=== PATIENT | female | born 1955 | race Caucasian/White ===

== ENCOUNTER 2016-10-05 08:36 | Day surgery (SDC) | payer OTHER ==
[~2016-10-05 08:36] MED LIST: ALBUTEROL HFA60 DOSE IN; ATIVAN0.5 MG PO; BACLOFEN10 MG PO; GABAPENTIN300 MG PO; HUMALIN N SC; LISINOPRIL10 MG PO; MAXALT-MLT10 MG PO; SIMVASTATIN20 MG; VENLAFAXINE H37.5 M1 PO
--- NOTE | 2016-10-05 10:36 | DIAGNOSTIC IMAGING REPORT ---
PROCEDURE: XR FLUORO GUIDED SPINE INJ-PC INDICATION: BACK PAIN TECHNIQUE: C-arm fluoroscopy provided to Dr. King for therapeutic spinal injection. Fluoroscopy time 0.2 minutes 20.7 mGy). COMPARISON: None. FINDINGS: AP and lateral C-arm views. There is a needle tip overlying the posterior spinal canal at the L5-S1 level with injection of a small amount of epidural contrast material. IMPRESSION: 1. C-arm fluoroscopy for therapeutic spinal injection (performed by Dr. King).
[2016-10-05 10:43] VITALS: BP 118/60
--- NOTE | 2016-10-07 09:11 | PROCEDURE NOTE ---
DATE OF PROCEDURE: 10/05/2016 ATTENDING PHYSICIAN/PROVIDER: Tera King MD PREPROCEDURE DIAGNOSIS: 1. Left sciatica POSTPROCEDURE DIAGNOSIS: 1. Left sciatica PROCEDURE PERFORMED: 1. L5-S1 interlaminar epidural steroid injection INDICATIONS: The patient is referred by Dr. Bradford for a repeat lumbar epidural steroid injection. She has had a recurrence of her low back pain radiating down the left leg to the foot. It is disabling and makes it very difficult for her to walk around. She describes the pain as an 8/10, dull, throbbing and sometimes shock-like, made worse by standing, walking, sitting, and bending. 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 She travels to and from work on public transport. She was originally referred for this condition by Dr. De La Torre in 05/2016 and had good pain relief from an epidural steroid injection. MEDICAL/SURGICAL HISTORY: Medical history: High blood pressure, varicose veins, panic attack, kidney stones, diabetes mellitus, anemia. Past Surgical History: Gastric bypass, appendectomy, hand surgery. MEDICATIONS: 1. Albuterol 2 puffs as needed. 2. Baclofen 10 mg twice daily as needed for back spasms. 3. Humulin N subcu 2 times daily. 4. Lisinopril 20 mg orally once daily. 5. Rizatriptan benzoate 10 mg orally as needed for migraines. 6. Simvastatin 20 mg daily. 7. Venlafaxine 75 mg twice daily. ALLERGIES: 1. CODEINE. 2. GOLD. 3. TETANUS TOXOID. 4. TRAMADOL. 5. SULFA. 6. NOVASIN. REVIEW OF SYSTEMS: Diabetes, high blood pressure. PHYSICAL EXAMINATION: GENERAL: A healthy-appearing woman in considerable distress when she walks. VITAL SIGNS: Weight 210 pounds, height 5 feet 4 inches. Blood pressure 135/70, pulse 81, respirations 16, temperature 97.7, room air oxygen saturation 100%. NEUROLOGIC: Alert and oriented. Cranial nerves grossly intact. HEAD/NECK: Normocephalic and atraumatic. Neck: Full range of motion. Airway MP2. Thyromental distance 3 fingerbreadths. CARDIOVASCULAR: Heart sounds normal. RESPIRATORY: Chest clear. EXTREMITIES: Straight leg raising left leg reduced to 15 degrees, the right leg no restriction. LAB/IMAGING: Imaging studies MRI lumbar spine 05/06/2016, degenerative facet changes and sparing at L3-L4 causing mild right foraminal narrowing, facet disk degeneration at L4-L5 causing mild right foraminal narrowing and mild degenerative changes throughout the lumbar spine. IMPRESSION: 1. Left sciatica. PLAN: Lumbar epidural steroid injection. DESCRIPTION OF PROCEDURE: After obtaining informed consent, the patient was taken to the procedure room and positioned in the prone position. The lumbar region was prepped with ChloraPrep and draped in sterile fashion. Lidocaine 1% was infiltrated over the L5-S1 interspace and an 18-gauge Tuohy needle was advanced to loss of resistance. Placement was confirmed by injection of 2 mL of Omnipaque 240, which showed good epidural spread. This was followed by injection of 6 mL of 0.5% lidocaine containing 80 mg of Depo- Medrol. The needle was removed and a Band-Aid applied. The patient tolerated the procedure well and walked back comfortably to the recovery area. She was observed for 30 minutes and no neurological deficits developed. She was advised to follow up with Dr. Bradford.
== END 2016-10-05 10:45 | disposition home or self-care (01) ==
LOC: CDU SRH 08:36 → SCU SRH 08:39 → CDU SRH 09:00
PROVIDERS: Specialist
PROC: 3E0R3BZ Introduction of Anesthetic Agent into Spinal Canal, Percutaneous Approach (ICD-10-PCS; principal; 2016-10-05 09:00)
PROC: 3E0R33Z Introduction of Anti-inflammatory into Spinal Canal, Percutaneous Approach (ICD-10-PCS; principal; 2016-10-05 09:00)
DX: M54.32 Sciatica, left side (principal)
CPT/HCPCS: 29240; 55000